=== PATIENT | female | born 1975 | race Caucasian/White ===

== ENCOUNTER 2021-10-06 18:15 | Emergency (ER) | payer BC, SELFPAY ==
--- NOTE | 2021-10-06 18:24 | ECG_ITS ---
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 Measurements Intervals [place] Rate: 90 P: 17 OR: 135 QRS: 53 QRSD: 102 T: 49 QT: 331 QTc: 407 Interpretive Statements SINUS RHYTHM NONSPECIFIC ST & T-WAVE ABNORMALITY No previous ECG available for comparison Electronically Signed On 10-07-2021 15:38:06 CDT by Maulik Amaya M.D. [id number]
[2021-10-06 18:26] VITALS: BP 190/89; PULSE 92; RESP 16; TEMP 36.8; O2SAT 94
--- NOTE | 2021-10-06 18:31 | CTR_ITS ---
PROCEDURE INFORMATION: Exam: CT Head Without Contrast Exam date and time: 10/06/2021 7:35 PM Age: 46 years old Clinical indication: Dizziness; Additional info: Dizzy TECHNIQUE: Imaging protocol: Computed tomography of the head without contrast. Radiation optimization: All CT scans at this facility use at least one of these dose optimization techniques: automated exposure control; mA and/or kV adjustment per patient size (includes targeted exams where dose is matched to clinical indication); or iterative reconstruction. COMPARISON: CT head wo con* [id number] 12/25/2015 8:49 AM RADIATION DOSE METRICS: Total DLP (mGy-cm): 1100.08 FINDINGS: Brain: Normal. No hemorrhage. Unremarkable white matter. No mass effect. Cerebral ventricles: No ventriculomegaly. Paranasal sinuses: Visualized sinuses are unremarkable. No fluid levels. Mastoid air cells: Visualized mastoid air cells are well aerated. Bones/joints: Unremarkable. No acute fracture. Soft tissues: Unremarkable. CT/CT head wo con* [id number] IMPRESSION: No acute intracranial abnormality.
--- NOTE | 2021-10-06 18:31 | XRR_ITS ---
PROCEDURE INFORMATION: Exam: XR Chest Exam date and time: 10/06/2021 6:52 PM Age: 46 years old Clinical indication: Other: Hypertension; Additional info: HTN TECHNIQUE: Imaging protocol: Radiologic exam of the chest. Views: 1 view. COMPARISON: CT angio headneck* [id number] 09/07/2015 3:12 PM FINDINGS: Lungs: Unremarkable. No consolidation. Pleural spaces: Unremarkable. No pleural effusion. No pneumothorax. Heart/Mediastinum: Unremarkable. No cardiomegaly. Bones/joints: Unremarkable. XR/XR chest 1V portable [id number] IMPRESSION: No acute findings.
--- NOTE | 2021-10-06 18:36 | ED_ITS ---
HPI - Dizziness General: Chief Complaint: Dizziness Stated Complaint: Dizzy Spells\High Blood Pressure Time Seen by Provider: 10/06/21 18:17 Source: patient Mode of arrival: ambulatory Limitations: no limitations History of Present Illness: HPI Narrative: 46-year-old female states that she has had some intermittent dizziness and blurry vision over the last week states that she has had it today since 1 seems to come and go states she has no symptoms currently. Patient states she has been hypertensive today she has no known history of hypertension in the past she has had no weakness denies any headache denies any chest pain. Associated symptoms: Denies chest pain, chills, nausea or vomiting Review of Systems Const: Denies: fever(s), chills, body aches or change in appetite Eyes: Denies: blurry vision or eye discomfort ENMT: Denies: throat pain or dental pain Card: Denies: chest pain Resp: Denies: dyspnea GI: Denies: abdominal pain, nausea, vomiting or diarrhea : Denies: dysuria Musc: Denies: neck pain or back pain Skin/Breast: Denies: rash Neuro: Reports: dizziness Psych: Denies: depression Ryan/Lymph: Denies: easy bruising All/Imm: Denies: urticaria PFSH ED PFSH: Medical History (Updated 10/06/21 @ 19:58 by Harjinder Chang MD) CVA (cerebral vascular accident) Social History (Updated 10/06/21 @ 18:37 by Harjinder Chang MD) Substance/Drug Use: never Physical Exam Const: COMMON NORMALS: no acute distress, patient oriented x3 and healthy appearing HENMT: COMMON NORMALS: normocephalic and atraumatic HEAD & SCALP: normocephalic and atraumatic Eye: COMMON NORMALS: Equal, round and reactive pupils present and EOMs intact bilaterally PUPIL: Yes Equal, round and reactive pupils present Neck/C-Spine: COMMON NORMALS: full ROM and supple Chest: COMMONS NORMALS: normal inspection of the chest and normal palpation of entire chest wall Resp: COMMON NORMALS: normal respiratory effort, No retractions, No use of accessory muscles and clear to auscultation bilaterally AUSCULTATION: clear to auscultation bilaterally Cardio: COMMON NORMALS: regular rate, regular rhythm and No murmurs present (Cardio) RATE: regular rate RHYTHM: regular rhythm GI: COMMON NORMALS: Normal to inspection, nondistended, normoactive bowel sounds present, Soft to palpation, non-tender and no masses PALPATION: Yes Soft to palpation Extremity: COMMON NORMALS: normal to inspection and full ROM Neuro: COMMON NORMALS: patient oriented x3, moves all extremities and no focal motor deficits Psych: COMMON NORMALS: mental status grossly normal, Normal thought process present and cooperative THOUGHT PROCESS: Normal thought process present Skin: COMMON NORMALS: no rashes or lesions noted and no wounds GENERAL SKIN EXAM: no rashes or lesions noted Course Vital Signs: Vital signs: Vital Signs Temperature 98.2 F 10/06/21 18:26 Pulse Rate 92 10/06/21 18:26 Respiratory Rate 18 10/06/21 19:33 Blood Pressure 122/91 10/06/21 19:33 Pulse Oximetry 96 10/06/21 19:33 Oxygen Delivery Me thod 10/06/21 19:33 MDM - Dizziness Medical Decision Making Patient presents here with hypertension along with some dizziness her NIH here is 0 she is asymptomatic here head CT is normal she feels improved here after blood pressure is improved we will start her on metoprolol she is to follow-up with PCP in 4 to 7 days and return if worsening she understands agrees to plan. Lab Data : 10/06/21 18:55 10/06/21 18:55 Radiology Impressions Chest X-Ray 10/06/21 18:31 IMPRESSION: No acute findings. Head CT 10/06/21 18:31 IMPRESSION: No acute intracranial abnormality. Laboratory Results WBC 15.0 10^3/uL (4.0-10.0) H 10/06/21 18:55 RBC 5.47 10^6/uL (4.1-5.3) H 10/06/21 18:55 Hgb 11.6 g/dL (11.5-15.3) 10/06/21 18:55 Hct 40.6 % (37.0-47.0) 10/06/21 18:55 MCV 74.2 fl (81-99) L 10/06/21 18:55 MCH 21.2 pg (28.0-34.0) L 10/06/21 18:55 MCHC 28.6 g/dL (30.0-36.0) L 10/06/21 18:55 RDW 29.1 % (12.1-15.1) H 10/06/21 18:55 Plt Count 307 10^3/cmm (130-400) 10/06/21 18:55 MPV 9.0 fL (7.4-10.4) 10/06/21 18:55 Neut % (Auto) 76.3 % 10/06/21 18:55 Lymph % (Auto) 16.5 % 10/06/21 18:55 [place] % (Auto) 5.3 % 10/06/21 18:55 Eos % (Auto) 1.2 % 10/06/21 18:55 Baso % (Auto) 0.4 % 10/06/21 18:55 Neut # (Auto) 11.41 10^3/uL (1.8-7.7) H 10/06/21 18:55 Lymph # (Auto) 2.5 10^3/uL (0.8-4.8) 10/06/21 18:55 [place] # (Auto) 0.8 10^3/uL (0.2-0.9) 10/06/21 18:55 Eos # (Auto) 0.2 10^3/uL (0.0-0.8) 10/06/21 18:55 Baso # (Auto) 0.1 10^3/uL (0.0-0.1) 10/06/21 18:55 Nucleated RBC % (auto) 0 % 10/06/21 18:55 Nucleated RBCs # 0.0 /100WBC 10/06/21 18:55 Sodium 136 mmol/L (136-145) 10/06/21 18:55 Potassium 4.2 mmol/L (3.5-5.1) 10/06/21 18:55 Chloride 100 mmol/L (98-107) 10/06/21 18:55 Carbon Dioxide 23 mmol/L (22-29) 10/06/21 18:55 Anion Gap 17.2 (5-19) 10/06/21 18:55 BUN 9 mg/dL (6-20) 10/06/21 18:55 Creatinine 0.5 mg/dL (0.5-0.9) 10/06/21 18:55 GFR Calculation 132.8 mL/min (90-130) H 10/06/21 18:55 Glucose 112 mg/dL (65-115) 10/06/21 18:55 Calculated Osmolality 281 mOsm/kg (285-295) L 10/06/21 18:55 Calcium 9.3 mg/dL (8.5-10.5) 10/06/21 18:55 Total Bilirubin 0.2 mg/dL (0.15-1.2) 10/06/21 18:55 AST 28 U/L (0-32) 10/06/21 18:55 ALT 25 U/L (0-33) 10/06/21 18:55 Alkaline Phosphatase 103 U/L (35-105) 10/06/21 18:55 Troponin T Baseline 6 ng/L (0-10) 10/06/21 18:55 Total Protein 7.2 g/dL (6.6-8.7) 10/06/21 18:55 Albumin 4.2 g/dL (3.5-5.2) 10/06/21 18:55 Globulin 3.0 g/dL (1.3-4.6) 10/06/21 18:55 EKG Data EKG 1: I personally reviewed and interpreted this EKG as follows: EKG interpretation date: 10/06/21 EKG interpretation time: 18:24 Interpretation: nsr hr [address] or t wave abnormalities qrs 102 qtc 379 Discharge Plan Discharge Patient Disposition: Home Clinical Impression: Hypertension, Dizziness Prescriptions: New metoprolol succinate 50 mg tablet extended release 24 hr 50 mg PO DAILY Qty: 60 0RF Discharge Orders: Discharge ED (Routine); Ordered 10/06/21 Ordered By: Hrajinder Chang Discharge Diet: Advance as tolerated Discharge Activity: Resume usual activity Patient Instructions: Hypertension (ED) Coding Level of Care Code ED Donkey Doctor for Chg Fwd Exam Comprehensive NIH stroke score NIHSS Level Of Consciousness - 1a: 0 Level Of Consciousness Questions - 1b: Both Correct Level Of Consciousness Commands - 1c: Both Correct Best Gaze - 2: Normal Visual Roberts - 3: No Visual Loss Facial Palsy - 4: Normal Motor Arm Right - 5: No Drift Motor Arm Left - 5: No Drift Motor Leg Right - 6: No Drift Motor Leg Left - 6: No Drift Limb Ataxia - 7: Absent Sensory - 8: Normal Best Language - 9: No Aphasia Dysarthia - 10: Normal Extinction And Inattention - 11: 0 Score Total Score: 0
[2021-10-06] MEDS: labetalol 5 mg/mL SDV 20mL 10 MG IVP (18:51)
[2021-10-06 19:08] LABS: Basophils # 0.1 10^3/uL (0.0-0.1); Basophils % 0.4 %; Eosinophils # 0.2 10^3/uL (0.0-0.8); Eosinophils % 1.2 %; Hematocrit 40.6 % (37.0-47.0); Hemoglobin 11.6 g/dL (11.5-15.3); Lymphocytes # 2.5 10^3/uL (0.8-4.8); Lymphocytes % 16.5 %; Mean Corpuscular HGB Conc 28.6 g/dL (30.0-36.0); Mean Corpuscular Hemoglobin 21.2 pg (28.0-34.0); Mean Corpuscular Volume 74.2 fl (81-99); Monocytes # 0.8 10^3/uL (0.2-0.9); Monocytes % 5.3 %; Neutrophils # 11.41 10^3/uL (1.8-7.7); Neutrophils % 76.3 %; Nucleated Red Blood Cells % 0 %; Platelet Count 307 10^3/cmm (130-400); Red Blood Count 5.47 10^6/uL (4.1-5.3); Red Cell Distribution Width 29.1 % (12.1-15.1)
[2021-10-06 19:10] LABS: Slide Review Slide Review Perform
[2021-10-06 19:30] LABS: Troponin(5th) Baseline 6 ng/L (0-10)
[2021-10-06 19:32] LABS: Alanine Aminotransferase 25 U/L (0-33); Albumin Level 4.2 g/dL (3.5-5.2); Alkaline Phosphatase 103 U/L (35-105); Blood Urea Nitrogen 9 mg/dL (6-20); Calcium 9.3 mg/dL (8.5-10.5); Carbon Dioxide 23 mmol/L (22-29); Chloride 100 mmol/L (98-107); Glomerular Filtration Rate 132.8 mL/min (90-130); Glucose 112 mg/dL (65-115); Osmolality Calculated 281 mOsm/kg (285-295); Sodium 136 mmol/L (136-145); Total Bilirubin 0.2 mg/dL (0.15-1.2); Total Protein 7.2 g/dL (6.6-8.7)
[2021-10-06 19:33] VITALS: BP 122/91; RESP 18; O2SAT 96
[2021-10-06 19:35] LABS: Anion Gap 17.2 (5-19); Aspartate Amino Transferase 28 U/L (0-32); Potassium 4.2 mmol/L (3.5-5.1)
[2021-10-06 20:11] VITALS: BP 140/78; PULSE 80; RESP 18; O2SAT 95
== END 2021-10-06 20:10 | disposition home or self-care (01) ==
PROVIDERS: Emergency Provider Emergency Medicine
DX: R42 Dizziness and giddiness (principal); I10 Essential (primary) hypertension; Z86.73 Personal history of transient ischemic attack (TIA), and cerebral infarction without residual deficits
CPT/HCPCS: 70450; 71045; 80053; 84484; 85025; 93005; 96374; 99284; J3490

== ENCOUNTER → 2021-10-26 08:43 | Outpatient (BNVA) | payer BC, SELFPAY | PROVIDERS: PCP Family Medicine; Visit Provider Family Medicine | DX: I10 Essential (primary) hypertension (principal); I63.9 Cerebral infarction, unspecified; E78.2 Mixed hyperlipidemia; Z76.89 Persons encountering health services in other specified circumstances; D50.9 Iron deficiency anemia, unspecified | CPT/HCPCS: 80061; 82728; 83550; 84443 ==

== ENCOUNTER → 2021-11-23 08:28 | Outpatient (BNVA) | payer BC, SELFPAY | PROVIDERS: PCP Family Medicine; Visit Provider Family Medicine | DX: E78.2 Mixed hyperlipidemia (principal); I63.9 Cerebral infarction, unspecified; Z78.9 Other specified health status; I10 Essential (primary) hypertension; R71.8 Other abnormality of red blood cells | CPT/HCPCS: 80503; 85025; 85045 ==

== ENCOUNTER 2022-01-17 07:57 | Emergency (ER) | payer BC, SELFPAY ==
[2022-01-17 08:03] VITALS: BP 137/78; PULSE 84; RESP 17; TEMP 36.4; O2SAT 96; BMI 47.5
[2022-01-17 08:05] VITALS: PULSE 93; O2SAT 93
--- NOTE | 2022-01-17 08:05 | ECG_ITS ---
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 [id number]
--- NOTE | 2022-01-17 08:05 | CT_ITS ---
WS: [id number] CT HEAD TECHNIQUE: Noncontrast CT of the head obtained from the skullbase to the vertex. CLINICAL INFORMATION: slurrd speech COMPARISON: October 06, 2021 DLP: 1099.[address] scans at [facility] use at least one of these dose optimization techniques: automated e xposure control; mA and/or kV adjustment per patient size (includes targeted exams where dose is matc hed to clinical indication); or iterative reconstruction. FINDINGS: No evidence of intracranial hemorrhage or mass effect. Ventricular system and basal cisterns are perry nt. Suspected tiny lacunar infarcts in the RIGHT internal capsule and basal ganglia. New since Septem 2021 but have a subacute to chronic appearance. This can be followed up with MRI. No other si gnificant changes compared 6 to previous. No extra-axial fluid collections. No evidence of mass or mass effect. Paranasal sinuses and mastoid a ir cells well aerated. CT/CT head wo con* [id number] IMPRESSION: 1. No evidence of intracranial hemorrhage or mass effect. 2. Tiny suspected lacunar infarcts in the RIGHT internal capsule basal ganglia appear new compared to October 06, 2021 but have a subacute to chronic appea lisa. This can be followed up with MRI. 3. No other significant findings. Notified Osmani Ruiz DO at 01/17/2022 9:08 AM.
--- NOTE | 2022-01-17 08:18 | W.ED.NEUROSD ---
HPI - Neuro Symptoms/Deficit General: Chief Complaint: Neuro Symptoms/Deficit Stated Complaint: slurred speech Time Seen by Provider: 01/17/22 08:04 Source: patient Mode of arrival: ambulatory History of Present Illness: 46-year-old female presents emergency room with complaints of loss of balance and difficulty with speech had 2 episodes this morning one a little less than 2 hours ago the other about 45 minutes before presentation all of her symptoms have resolved. In 2016 she did have a right mid pontine stroke shown on MRI. She has been in several times since then with similar complaints. She has chronic migraines and is a smoker she is not diabetic she does have hypertension. She is on aspirin daily but not on any Plavix she is on statin as well. Onset (ago): hour(s) Last Observed Normal: 06:40 Location: speech and ataxia History of same: Yes Severity: moderate Relieving factors: none Exacerbating factors: none Associated symptoms: Deny chest pain, cough, diaphoresis, fevers/chills, headache(s), anorexia, malaise, nausea, seizures, short of breath, syncope, tingling, vertigo, vomiting or weakness Treatments Prior to Arrival: none Review of Systems Const: Denies: fever(s), chills, fatigue, malaise or diaphoresis Eyes: Denies: change in vision ENMT: Denies: throat pain, ear or mastoid pain, nasal discharge or nasal congestion Card: Denies: chest pain or syncope Resp: Denies: dyspnea, productive cough or non-productive cough GI: Denies: abdominal pain, nausea or vomiting : Denies: flank pain, difficulty voiding, dysuria, urinary frequency or urinary urgency Musc: Denies: neck pain or back pain Skin/Breast: Denies: rash or pruritus Neuro: Denies: headache(s) or vertigo PFSH ED PFSH: Medical History CVA (cerebral vascular accident) Family History Grandmother CAD (coronary artery disease) Hypertension Stroke Grandfather Dementia Hypertension Denies family history of Diabetes Clotting disorder Hyperlipidemia Psychiatric illness Chronic kidney disease (CKD) Suicide Anesthesia complication Family history of premature coronary artery disease Lung disease Cancer Social History (Reviewed 01/17/22 @ 08:26 by ALIA Ribeiro Smoking and tobacco status: never smoked Female Reproductive History: Date of last menstrual period: 07/19/21 Para: 4 Spontaneous abortions: No NIH stroke score NIHSS: Level Of Consciousness - 1a: 0 Level Of Consciousness Questions - 1b: Both Correct Level Of Consciousness Commands - 1c: Both Correct Best Gaze - 2: Normal Visual Roberts - 3: No Visual Loss Facial Palsy - 4: Normal Motor Arm Right - 5: No Drift Motor Arm Left - 5: No Drift Motor Leg Right - 6: No Drift Motor Leg Left - 6: No Drift Limb Ataxia - 7: Absent Sensory - 8: Normal Best Language - 9: No Aphasia Dysarthia - 10: Normal Extinction And Inattention - 11: 0 Score: Total Score: 0 Physical Exam Const: GENERAL APPEARANCE: cooperative and comfortable ORIENTATION/CONSCIOUSNESS: Yes awake, Yes oriented to person, Yes oriented to place and Yes oriented to time HENMT: COMMON NORMALS: normocephalic, atraumatic and hearing grossly normal bilaterally HEAD & SCALP: normocephalic and atraumatic Resp: COMMON NORMALS: normal respiratory effort, No retractions, No use of accessory muscles and clear to auscultation bilaterally AUSCULTATION: clear to auscultation bilaterally Cardio: COMMON NORMALS: regular rate, regular rhythm and No murmurs present (Cardio) RATE: regular rate RHYTHM: regular rhythm GI: COMMON NORMALS: Soft to palpation and No hepatosplenomegaly present AUSCULTATION: Yes normoactive bowel sounds PALPATION: Yes Soft to palpation, No Tenderness to palpation present (GI), No Guarding due to palpation present (GI) and Yes No hepatosplenomegaly present Extremity: COMMON NORMALS: normal to inspection, capillary refill normal, no clubbing, cyanosis or edema, no calf tenderness and no pedal edema Neuro: SENSORIUM/ORIENTATION: Yes oriented to person, Yes oriented to place and Yes oriented to time Skin: COMMON NORMALS: no rashes or lesions noted GENERAL SKIN EXAM: no rashes or lesions noted Course Vital Signs: Vital signs: Vital Signs Temperature 97.6 F 01/17/22 08:03 Pulse Rate 78 01/17/22 11:29 Respiratory Rate 17 01/17/22 08:03 Blood Pressure 130/60 01/17/22 11:29 Pulse Oximetry 95 01/17/22 11:29 Oxygen Delivery Me thod 01/17/22 10:00 MDM - Neuro Symptoms/Deficit Medical Decision Making NIH score 0. CT shows a new finding since early October but they are not acute subacute to chronic. She still does not have any symptoms at this point. However continue aspirin add clopidogrel and atorvastatin stop the lovastatin set up for an outpatient MRI and follow-up with neurology. Advised to follow-up with her primary care doctor regarding her hypocalcemia. PTH done at today's visit was normal. Medical Records I reviewed the patient's medical records. Lab Data I reviewed the patient's lab results. 01/17/22 08:24 01/17/22 08:[address] 01/17/22 08:05 IMPRESSION: 1. No evidence of intracranial hemorrhage or mass effect. 2. Tiny suspected lacunar infarcts in the RIGHT internal capsule basal ganglia appear new compared to October 06, 2021 but have a subacute to chronic appearance. This can be followed up with MRI. 3. No other significant findings. Notified Osmani Ruiz DO at 01/17/2022 9:08 AM. Laboratory Results WBC 16.3 10^3/uL (4.0-10.0) H 01/17/22 08:24 RBC 4.68 10^6/uL (4.1-5.3) 01/17/22 08:24 Hgb 12.3 g/dL (11.5-15.3) 01/17/22 08:24 Hct 39.8 % (37.0-47.0) 01/17/22 08:24 MCV 85.0 fl (81-99) 01/17/22 08:24 MCH 26.3 pg (28.0-34.0) L 01/17/22 08:24 MCHC 30.9 g/dL (30.0-36.0) 01/17/22 08:24 RDW 16.2 % (12.1-15.1) H 01/17/22 08:24 Plt Count 429 10^3/cmm (130-400) H 01/17/22 08:24 MPV 11.2 fL (7.4-10.4) H 01/17/22 08:24 Neut % (Auto) 82.9 % 01/17/22 08:24 Lymph % (Auto) 10.7 % 01/17/22 08:24 Bibb % (Auto) 4.5 % 01/17/22 08:24 Eos % (Auto) 1.1 % 01/17/22 08:24 Baso % (Auto) 0.4 % 01/17/22 08:24 Neut # (Auto) 13.52 10^3/uL (1.8-7.7) H 01/17/22 08:24 Lymph # (Auto) 1.8 10^3/uL (0.8-4.8) 01/17/22 08:24 Bibb # (Auto) 0.7 10^3/uL (0.2-0.9) 01/17/22 08:24 Eos # (Auto) 0.2 10^3/uL (0.0-0.8) 01/17/22 08:24 Baso # (Auto) 0.1 10^3/uL (0.0-0.1) 01/17/22 08:24 Nucleated RBC % (auto) 0 % 01/17/22 08:24 Nucleated RBCs # 0.0 /100WBC 01/17/22 08:24 Sodium 139 mmol/L (136-145) 01/17/22 08:24 Potassium 4.6 mmol/L (3.5-5.1) 01/17/22 08:24 Chloride 104 mmol/L (98-107) 01/17/22 08:24 Carbon Dioxide 24 mmol/L (22-29) 01/17/22 08:24 Anion Gap 15.6 (5-19) 01/17/22 08:24 BUN 10 mg/dL (6-20) 01/17/22 08:24 Creatinine 0.5 mg/dL (0.5-0.9) 01/17/22 08:24 GFR Calculation 132.8 mL/min (90-130) H 01/17/22 08:24 Glucose 164 mg/dL (65-115) H 01/17/22 08:24 Calculated Osmolality 291 mOsm/kg (285-295) 01/17/22 08:24 Calcium 5.9 mg/dL (8.5-10.5) L 01/17/22 08:24 Total Bilirubin 0.2 mg/dL (0.15-1.2) 01/17/22 08:24 AST 15 U/L (0-32) 01/17/22 08:24 ALT 14 U/L (0-33) 01/17/22 08:24 Alkaline Phosphatase 102 U/L (35-105) 01/17/22 08:24 Total Protein 7.3 g/dL (6.6-8.7) 01/17/22 08:24 Albumin 4.1 g/dL (3.5-5.2) 01/17/22 08:24 Globulin 3.2 g/dL (1.3-4.6) 01/17/22 08:24 PTH Intact 48.6 pg/mL (15-65) 01/17/22 11:32 Calcium (PTH Intact) 9.6 mg/dL (8.5-10.5) 01/17/22 11:32 Discharge Plan Discharge Patient Disposition: Home Clinical Impression: Transient cerebral ischemia, History of CVA (cerebrovascular accident), Hypocalcemia Condition: Stable Prescriptions: New clopidogrel 75 mg tablet 75 mg PO DAILY Qty: 30 0RF atorvastatin 40 mg tablet 40 mg PO DAILY Qty: 30 0RF Discontinued lovastatin 20 mg tablet 20 mg PO DAILY Qty: 90 1RF No Action aspirin 81 mg tablet,delayed release (DR/EC) 81 mg PO DAILY metoprolol succinate 50 mg tablet extended release 24 hr 50 mg PO DAILY Qty: 90 1RF lisinopril 20 mg tablet 20 mg PO DAILY Qty: 90 1RF Vitamin C 500 mg Tablet 500 mg PO DAILY ferrous sulfate 27 mg iron Tablet 27 mg PO DAILY Discharge Orders: Discharge ED (Routine); Ordered 01/17/22 Ordered By: Osmani Ruiz Referrals: Thierry Carlson DO [Primary Care Provider] - Discharge Diet: Usual diet Discharge Activity: Increase activity as tolerated Patient Instructions: Opioid Safety, Pain Management Activity Restrictions/Additional Instructions: CT shows evidence of previous strokes that are new since the beginning of October of this year but do not appear to be recent on the CT of the head. There is no active bleeding. Recommend to continue aspirin daily add clopidogrel and change from lovastatin to atorvastatin 40 mg daily. Case management make arrangements for an outpatient MRI of the head. Your calcium was also low while you are in the emergency room today you were given some supplement IV do recommend that you follow-up with your primary care doctor to evaluate hypocalcemia further. Coding Level of Care Code ED [employer] Soa Developer for [employer] Fwd Exam Detailed
[2022-01-17 08:39] LABS: Basophils # 0.1 10^3/uL (0.0-0.1); Basophils % 0.4 %; Eosinophils # 0.2 10^3/uL (0.0-0.8); Eosinophils % 1.1 %; Hematocrit 39.8 % (37.0-47.0); Hemoglobin 12.3 g/dL (11.5-15.3); Lymphocytes # 1.8 10^3/uL (0.8-4.8); Lymphocytes % 10.7 %; Mean Corpuscular HGB Conc 30.9 g/dL (30.0-36.0); Mean Corpuscular Hemoglobin 26.3 pg (28.0-34.0); Mean Platelet Volume 11.2 fL (7.4-10.4); Monocytes # 0.7 10^3/uL (0.2-0.9); Monocytes % 4.5 %; Neutrophils # 13.52 10^3/uL (1.8-7.7); Neutrophils % 82.9 %; Nucleated Red Blood Cells % 0 %; Platelet Count 429 10^3/cmm (130-400); Red Blood Count 4.68 10^6/uL (4.1-5.3); Red Cell Distribution Width 16.2 % (12.1-15.1); White Blood Count 16.3 10^3/uL (4.0-10.0)
[2022-01-17 08:54] LABS: Alanine Aminotransferase 14 U/L (0-33); Albumin Level 4.1 g/dL (3.5-5.2); Alkaline Phosphatase 102 U/L (35-105); Anion Gap 15.6 (5-19); Aspartate Amino Transferase 15 U/L (0-32); Blood Urea Nitrogen 10 mg/dL (6-20); Carbon Dioxide 24 mmol/L (22-29); Chloride 104 mmol/L (98-107); Globulin 3.2 g/dL (1.3-4.6); Glomerular Filtration Rate 132.8 mL/min (90-130); Glucose 164 mg/dL (65-115); Osmolality Calculated 291 mOsm/kg (285-295); Potassium 4.6 mmol/L (3.5-5.1); Sodium 139 mmol/L (136-145); Total Bilirubin 0.2 mg/dL (0.15-1.2); Total Protein 7.3 g/dL (6.6-8.7)
[2022-01-17 08:57] LABS: Calcium 5.9 mg/dL (8.5-10.5)
[2022-01-17 09:05] VITALS: BP 169/98; PULSE 88; O2SAT 93
[2022-01-17 09:30] VITALS: BP 115/52; PULSE 79; O2SAT 94
[2022-01-17] MEDS: calcium chloride 10% Syr 10 mL 2 GM IVP (09:34)
[2022-01-17 10:00] VITALS: PULSE 70; O2SAT 95
[2022-01-17 11:29] VITALS: BP 130/60; PULSE 78; O2SAT 95
[2022-01-17 11:49] LABS: Calcium 9.6 mg/dL (8.5-10.5)
[2022-01-17 11:56] LABS: Parathyroid Hormone 48.6 pg/mL (15-65)
--- NOTE | 2022-01-18 15:41 | DCPLANNER ---
Addendum entered by Tish Bro 04/20/22 17:21: MRI was cancelled Addendum entered by Tish Bro 01/24/22 12:10: Patient had a follow up appointment scheduled with neurology - patient did not attend appointment. Original Note: purchasing manager had message to schedule a follow up appointment for patient with neurology. purchasing manager sent patients information to the front office staff at neurology. Patients information will be printed and reviewed. Clinic will call patient with appointment information.
== END 2022-01-17 11:26 | disposition home or self-care (01) ==
PROVIDERS: Emergency Provider Family Medicine; PCP Family Medicine
DX: G45.9 Transient cerebral ischemic attack, unspecified (principal); E83.51 Hypocalcemia; Z86.73 Personal history of transient ischemic attack (TIA), and cerebral infarction without residual deficits; Z79.82 Long term (current) use of aspirin
CPT/HCPCS: 70450; 80053; 82310; 83970; 85025; 93005; 96374; 96375; 99285; J3490

== ENCOUNTER → 2022-01-19 08:43 | Outpatient (BNVA) | payer BC, SELFPAY | PROVIDERS: PCP Family Medicine; Visit Provider Family Medicine | DX: E78.2 Mixed hyperlipidemia (principal); R71.8 Other abnormality of red blood cells; D72.829 Elevated white blood cell count, unspecified; E83.51 Hypocalcemia | CPT/HCPCS: 80053; 82607; 82746 ==

== ENCOUNTER 2022-02-14 08:06 | Oncology outpatient (recurring) (ONCR) | payer BC, SELFPAY ==
[2022-02-14 09:40] LABS: Basophils # 0.1 10^3/uL (0.0-0.1); Basophils % 0.5 %; Eosinophils # 0.2 10^3/uL (0.0-0.8); Eosinophils % 1.7 %; Hematocrit 34.7 % (37.0-47.0); Hemoglobin 10.4 g/dL (11.5-15.3); Lymphocytes # 1.8 10^3/uL (0.8-4.8); Lymphocytes % 14.9 %; Mean Corpuscular Hemoglobin 27.5 pg (28.0-34.0); Mean Corpuscular Volume 91.8 fl (81-99); Mean Platelet Volume 11.6 fL (7.4-10.4); Monocytes # 0.5 10^3/uL (0.2-0.9); Monocytes % 4.4 %; Neutrophils # 9.42 10^3/uL (1.8-7.7); Neutrophils % 77.8 %; Nucleated Red Blood Cells # 0.1 /100WBC; Nucleated Red Blood Cells % 0.4 %; Platelet Count 329 10^3/cmm (130-400); Red Blood Count 3.78 10^6/uL (4.1-5.3); White Blood Count 12.1 10^3/uL (4.0-10.0)
[2022-02-14 10:08] LABS: Calcium 9.3 mg/dL (8.5-10.5)
[2022-02-14 10:12] LABS: LAB Peripheral Smear Sent for Review
[2022-02-14 10:14] LABS: Parathyroid Hormone 58.4 pg/mL (15-65)
[2022-02-14 10:21] LABS: Alanine Aminotransferase 19 U/L (0-33); Albumin Level 3.8 g/dL (3.5-5.2); Alkaline Phosphatase 102 U/L (35-105); Anion Gap 15.8 (5-19); Aspartate Amino Transferase 19 U/L (0-32); Blood Urea Nitrogen 8 mg/dL (6-20); C Reactive Protein 4.6 mg/L (0.0-4.9); Carbon Dioxide 25 mmol/L (22-29); Chloride 106 mmol/L (98-107); Globulin 2.7 g/dL (1.3-4.6); Glomerular Filtration Rate 132.8 mL/min (90-130); Glucose 109 mg/dL (65-115); Iron 296 ug/dL (37-145); Lactate Dehydrogenase 181 U/L (135-214); Magnesium 1.8 mg/dL (1.7-2.3); Osmolality Calculated 293 mOsm/kg (285-295); Percent Saturation 92.2 % (20-50); Potassium 4.8 mmol/L (3.5-5.1); Sodium 142 mmol/L (136-145); Thyroid Stimulating Hormone 0.53 uIU/mL (0.27-4.20); Total Bilirubin 0.2 mg/dL (0.15-1.2); Total Iron Binding Capacity 321 mcg/dl; Total Protein 6.5 g/dL (6.6-8.7); Unsaturated Iron Binding 25 ug/dL (112-347)
[2022-02-15 08:49] LABS: Ferritin 42 ng/mL (15-150)
[2022-02-16 15:45] LABS: Anti-Nuclear Antibody Screen NEGATIVE (NEGATIVE)
[2022-02-21 14:25] LABS: Erythrocyte Sedimentation Rate 17 mm/hr (0-15)
== END 2022-03-07 23:59 | disposition home or self-care (01) ==
PROVIDERS: PCP Family Medicine; Visit Provider Internal Medicine Medical Oncology
DX: D64.9 Anemia, unspecified (principal); D72.829 Elevated white blood cell count, unspecified
CPT/HCPCS: 80053; 82310; 82728; 83540; 83550; 83615; 83735; 83970; 84443; 85025; 85651; 86038; 86140; 86431

== ENCOUNTER 2022-03-28 11:34 | Oncology outpatient (recurring) (ONCR) | payer BC, SELFPAY ==
--- NOTE | 2022-03-28 12:09 | XR_ITS ---
WS: [id number] Exam: XR lumbar spine 2-3V* [id number] Date/Time of Exam: 03/28/2022 12:18 PM Reason For Exam: Low back pain No fracture or dislocation. Disc spaces are preserved. Posterior elements are intact. XR/XR lumbar spine 2-3V* [id number] IMPRESSION: 1. Negative lumbar spine study.
[2022-03-28 12:13] LABS: Basophils # 0.1 10^3/uL (0.0-0.1); Basophils % 0.4 %; Eosinophils # 0.2 10^3/uL (0.0-0.8); Eosinophils % 1.6 %; Hematocrit 39.7 % (37.0-47.0); Hemoglobin 12.3 g/dL (11.5-15.3); Lymphocytes # 2.1 10^3/uL (0.8-4.8); Lymphocytes % 15.9 %; Mean Corpuscular Hemoglobin 28.3 pg (28.0-34.0); Mean Corpuscular Volume 91.3 fl (81-99); Mean Platelet Volume 11.5 fL (7.4-10.4); Monocytes # 0.8 10^3/uL (0.2-0.9); Monocytes % 6.2 %; Neutrophils # 10.21 10^3/uL (1.8-7.7); Neutrophils % 75.7 %; Nucleated Red Blood Cells % 0 %; Platelet Count 282 10^3/cmm (130-400); Red Blood Count 4.35 10^6/uL (4.1-5.3); Red Cell Distribution Width 15.1 % (12.1-15.1); White Blood Count 13.5 10^3/uL (4.0-10.0)
[2022-03-28 12:27] LABS: Ferritin 29 ng/mL (15-150); Iron 42 ug/dL (37-145); Percent Saturation 12.6 % (20-50); Total Iron Binding Capacity 331 mcg/dl; Unsaturated Iron Binding 289 ug/dL (112-347)
== END 2022-04-04 23:59 | disposition home or self-care (01) ==
PROVIDERS: PCP Family Medicine; Visit Provider Internal Medicine Medical Oncology
DX: D64.9 Anemia, unspecified (principal); D72.829 Elevated white blood cell count, unspecified; M54.50 Low back pain, unspecified
CPT/HCPCS: 36415; 72100; 82728; 83540; 83550; 85025

== ENCOUNTER 2022-07-18 14:00 | Outpatient (RCR) | payer BC, SELFPAY | END 2022-08-04 23:59 | disposition home or self-care (01) | LOC: SPT 14:00 | PROVIDERS: Visit Provider Family Medicine | DX: M62.830 Muscle spasm of back (principal); M54.50 Low back pain, unspecified | CPT/HCPCS: 97110; 97161 ==

== ENCOUNTER 2022-08-05 06:00 | Outpatient (RCR) | payer BC, SELFPAY | END 2022-08-23 23:59 | disposition home or self-care (01) | LOC: SPT 06:00 | PROVIDERS: Visit Provider Family Medicine | DX: M54.50 Low back pain, unspecified (principal); M62.830 Muscle spasm of back | CPT/HCPCS: 97110 ==

== ENCOUNTER 2022-11-08 11:21 | Outpatient (CLI) | payer BC, SELFPAY ==
--- NOTE | 2022-11-08 11:35 | XR_ITS ---
WS: [id number] EXAMINATION: XR foot LT 2V [id number] REASON FOR EXAM: Concern for fractured L great toe COMPARISON: None available. ORDER DATE: 11/08/2022 11:41 AM TECHNIQUE: 3 views of the left foot were obtained. X-RAY FINDINGS: There are no fractures or dislocations. No focal abnormal soft tissue swelling. Joint spaces are pres erved. IMPRESSION: No fractures or dislocations of the left foot.
== END 2022-11-08 11:22 | disposition home or self-care (01) ==
PROVIDERS: PCP Family Medicine; Visit Provider Family Medicine
DX: M79.675 Pain in left toe(s) (principal); S99.922A Unspecified injury of left foot, initial encounter; X58.XXXA Exposure to other specified factors, initial encounter
CPT/HCPCS: 73620

== ENCOUNTER → 2023-11-15 13:30 | Outpatient (BNVA) | payer BC, SELFPAY | PROVIDERS: PCP Family Medicine; Visit Provider Family Medicine | DX: I10 Essential (primary) hypertension (principal); E78.2 Mixed hyperlipidemia | CPT/HCPCS: 80048; 80061 ==

== ENCOUNTER → 2024-05-15 09:30 | Outpatient (BNVA) | payer BC, SELFPAY | PROVIDERS: PCP Family Medicine; Visit Provider Family Medicine | DX: E55.9 Vitamin D deficiency, unspecified (principal); I10 Essential (primary) hypertension; F41.1 Generalized anxiety disorder; D64.9 Anemia, unspecified | CPT/HCPCS: 80053; 82306; 82607; 82728; 83550; 85025 ==

== ENCOUNTER → 2024-11-27 08:00 | Outpatient (BNVA) | payer BC, SELFPAY | PROVIDERS: PCP Family Medicine; Visit Provider Family Medicine | DX: E55.9 Vitamin D deficiency, unspecified (principal); R53.83 Other fatigue; R11.0 Nausea; R10.11 Right upper quadrant pain; R19.8 Other specified symptoms and signs involving the digestive system and abdomen; I10 Essential (primary) hypertension; E78.2 Mixed hyperlipidemia; R79.89 Other specified abnormal findings of blood chemistry | CPT/HCPCS: 80053; 80061; 82306; 82607; 82746; 83036; 83690; 84439; 84443; 85025 ==

== ENCOUNTER 2024-12-15 06:16 | Outpatient (CLI) | payer BC, SELFPAY ==
--- NOTE | 2024-12-15 06:30 | US_ITS ---
WS: [id number] RIGHT UPPER QUADRANT ULTRASOUND HISTORY: R10.11 - Right upper quadrant pain COMPARISON: None available. Liver: 20.8 cm in length. Enlarged liver with increased attenuation. The entire liver is not well visualized. The posterior liver is obscured. Portal Vein: Normal hepatopetal flow with monophasic waveform. Gallbladder: Shadowing from the gallbladder fossa. Stone filled gallbladder contracted around stones. CBD: 0.5 cm Pancreas: Normal size and echogenicity. Right kidney: 12.4 cm in length. Normal size and echogenicity. No hydronephrosis or mass. Aorta and IVC: Unremarkable abdominal aorta and IVC. No ascites. US/US abdomen limited [id number] IMPRESSION: 1. Moderate hepatic steatosis with hepatomegaly. 2. Cholelithiasis. Stone filled gallbladder.
== END 2024-12-15 06:17 | disposition home or self-care (01) ==
LOC: RAD 06:17
PROVIDERS: PCP Family Medicine; Visit Provider Family Medicine
DX: R10.11 Right upper quadrant pain (principal); R19.8 Other specified symptoms and signs involving the digestive system and abdomen; R11.0 Nausea; K76.0 Fatty (change of) liver, not elsewhere classified; R16.0 Hepatomegaly, not elsewhere classified; K80.80 Other cholelithiasis without obstruction
CPT/HCPCS: 76705